=== PATIENT | male | born 1995 | race Hispanic/Latino ===

== ENCOUNTER 2025-01-12 11:35 | Emergency (ER) | payer SELFPAY ==
[2025-01-12 13:33] LABS: Absolute Lymphocytes (CBC) 1.4 K/uL (0.7-4.9); Hematocrit 47.5 % (39.6-49.0); Hemoglobin 16.4 g/dL (13.6-17.9); MCH 30.8 pg (27.0-35.0); MCHC 34.6 g/dL (32.0-36.0); MCV 89.2 fL (80-100); MPV 10.1 fL (7.6-11.3); Nucleated RBC Absolute Count 0.0 (0-0); Nucleated Red Blood Cells % 0.2 % (0-0); RBC Red Blood Cell Count 5.33 M/uL (4.33-5.43); White Blood Count 7.90 thou/uL (4.3-10.9)
[2025-01-12] MEDS ORDERED: NA CHLORIDE 0.9% 1,000 ML ONE (13:36)
[2025-01-12] MEDS ORDERED: DIPHENHYDRAMINE 50 MG/ML VIAL ONE (13:36)
[2025-01-12] MEDS ORDERED: KETOROLAC 30 MG/ML INJ ONE (13:36)
[2025-01-12] MEDS ORDERED: METOCLOPRAMIDE 10 MG/2mL INJ ONE (13:36)
[2025-01-12] MEDS ORDERED: NA CHLORIDE 0.9% 50 ML ONE (13:37)
[2025-01-12 13:48] LABS: Anion Gap 5.6 mEq/L (5.0-15.0); BUN Blood Urea Nitrogen 9.0 mg/dL (7-18); Glucose Level 143.0 mg/dL (74-106); Magnesium 2.0 mg/dL (1.6-2.4); Potassium 3.6 mEq/L (3.5-5.1)
--- NOTE | 2025-01-12 13:49 | RAD REPORT ---
EXAMINATION: Head Brain Wo Cont CLINICAL INDICATION: Male, 29 years old.HEADACHE TECHNIQUE: Axial CT images from the skull base to the vertex without intravenous contrast. Coronal an d sagittal reformatted images were created from the data set. One or more of the following dose reduction techniques were used: Automated exposure control, adjustment of the mA and/or kV according to patient size, and/or iterative reconstruction. Unless otherwise specified, incidental findings do not require dedicated imaging follow-up. [id number]. COMPARISON: No prior exams FINDINGS: INTRACRANIAL: No acute intracranial hemorrhage. No acute large vascular territory infarct. No hydroce phalus. No mass effect or midline shift. No significant white matter disease. VASCULATURE: No visualized abnormalities in the arteries or dural venous sinuses. SCALP/SKULL: No calvarial fracture identified. No acute soft tissue abnormality. SINUSES: The visualized paranasal sinuses are mostly clear. No significant mastoid fluid. IMPRESSION: No acute intracranial abnormality.
--- NOTE | 2025-01-12 14:08 | EDPHYS ---
Physician Documentation [facility] Name: Sahil Jerez Age: 29 yrs Sex: Male : 1995 Arrival Date: 01/12/2025 Time: 11:35 Bed 12 Private MD: ED Physician Yazan Saunders HPI: 01/12 13:45 This 29 yrs old Male presents to ER via Ambulatory with complaints of sb4 Migraine, Body Aches, Eye Pain. 13:45 Patient reports migraine behind his eyes for 3 days now. Does improve with Advil but sb4 just comes back. Denies any history of migraines. Denies any dizziness, nausea, vomiting, noise or light sensitivity. Denies any medical history -does not have high blood pressure or diabetes. Denies any trauma to his head. Historical: - Allergies: 12:02 No Known Allergies; dd2 - PMHx: 12:02 None; dd2 - PSHx: 12:02 None; dd2 - Immunization history:: Adult Immunizations unknown. - Infectious Disease History:: Denies. - Social history:: Smoking status: Patient denies any tobacco usage or history of. ROS: 13:45 Constitutional: Negative for fever, chills, and weight loss, sb4 13:45 Neuro: Positive for headache, 13:45 All other systems are negative, Exam: 13:45 Constitutional: This is a well developed, well nourished patient who is awake, alert, sb4 and in no acute distress. Head/Face: Normocephalic, atraumatic. Eyes: Extra-ocular motions intact. Periorbital areas with no swelling, redness, or edema. ENT: Mucous membranes moist. Cardiovascular: Regular rate and rhythm with a normal S1 and S2. Respiratory: No increased work of breathing, no retractions or nasal flaring. Abdomen/GI: Soft, non-tender, no distension. Skin: Warm, dry with normal turgor. Normal color with no rashes, no lesions, and no evidence of cellulitis. MS/ Extremity: Pulses equal, no cyanosis. Neurovascular intact. Full, normal range of motion. Neuro: Awake and alert, GCS 15, oriented to person, place, time, and situation. Motor strength 5/5 in all extremities. Sensory grossly intact. Vital Signs: 12:00 BP 126 / 79; Pulse 75; Resp 16; Temp 98.3; Pulse Ox 98% on R/A; Weight 97.52 kg; Height dd2 5 ft. 11 in. ; Pain 7/10; 14:39 BP 126 / 68; Pulse 86; Resp 18; Pulse Ox 100% on R/A; ap3 12:00 Body Mass Index 29.99 (97.52 kg, 180.34 cm) dd2 12:00 Pain Scale: Adult dd2 [place] Coma Score: 13:46 Eye Response: spontaneous(4). Motor Response: obeys commands(6). Verbal Response: sb4 oriented(5). Total: 15. MDM: 11:50 Medical Screening Exam initiated sb4 13:46 Differential diagnosis: cluster headache, hypertensive headache, migraine, sinusitis, sb4 tension headache. 14:20 Data reviewed: vital signs, nurses notes, lab test result(s), radiologic studies, and sb4 as a result, I will discharge patient. Counseling: I had a detailed discussion with the patient and/or guardian regarding the historical points, exam findings, and any diagnostic results supporting the discharge/admit diagnosis, lab results, radiology results, the need for outpatient follow up, for definitive care, to return to the emergency department if symptoms worsen or persist or if there are any questions or concerns that arise at home. 15:58 Special discussion: I discussed with the patient/guardian in detail that at this point sb4 there is no indication for admission to the hospital. It is understood, however, that if the symptoms persist or worsen the patient needs to return immediately for re-evaluation. 01/12 13:18 Order name: CBC with Diff; Complete Time: 13:37 sb4 01/12 13:18 Order name: BMP; Complete Time: 13:49 sb4 01/12 13:18 Order name: Magnesium; Complete Time: 13:49 sb4 01/12 13:18 Order name: Head Brain Wo Cont CT; Complete Time: 13:50 sb4 01/12 13:18 Order name: IV Start; Complete Time: 13:33 sb4 01/12 13:18 Order name: Labs collected and sent; Complete Time: 13:33 sb4 Administered Medications: 13:45 Drug: Ketorolac IVP 15 mg IVP once Route: IVP; Site: right antecubital; ap3 14:40 Follow up: Response: No adverse reaction ap3 13:45 Drug: metoCLOPramide IVP 10 mg IVP once; over 1 to 2 minutes Route: IVP; Site: right ap3 antecubital; 14:40 Follow up: Response: No adverse reaction ap3 13:45 Drug: diphenhydrAMINE IVP 25 mg IVP once Route: IVP; Site: right antecubital; ap3 14:40 Follow up: Response: No adverse reaction ap3 13:46 Drug: NS 0.9% IV 1000 ml IV at 1 bolus Per protocol; to be given as a bolus over 60 ap3 minutes Route: IV; Rate: 1 bolus; Site: right antecubital; 14:40 Follow up: IV Status: Completed infusion; IV Intake: 1000ml ap3 Disposition Summary: 01/12/25 14:08 Discharge Ordered Notes: Location: Home sb4 Problem: an ongoing problem sb4 Symptoms: have improved sb4 Condition: Stable sb4 Diagnosis - Headache sb4 Followup: sb4 - With: Emergency Department - When: As needed - Reason: Trouble breathing, Worsening of condition Discharge Instructions: - Discharge Summary Sheet sb4 - Migraine Headache, [id number] sb4 Forms: - Patient Portal Instructions sb4 - Leadership Thank You Letter sb4 Addendum: 01/15/2025 14:38 Co-signature as Attending Physician, Yazan Saunders MD I agree with the assessment and c horn plan of care. Signatures: Dispatcher [employer] Yazan Wilkerson MD MD cha Prokisch, Amanda, RN RN [email or web address] Frida Cordoba PA-C PAArmen best4 BINA STRINGER RN RN dd2
--- NOTE | 2025-01-12 14:08 | ER ---
Nurse's Notes [facility] Name: Sahil Jerez Age: 29 yrs Sex: Male : 1995 Arrival Date: 01/12/2025 Time: 11:35 Bed 12 Private MD: Diagnosis: Headache Presentation: 01/12 12:00 Chief complaint: Patient states: HEADACHE, BODY ACHES AND EYES THROBBING FOR 3 DAYS. PT dd2 REPORTS TAKING MULTIPLE OTC MEDICATIONS WITH NO RELIEF. Coronavirus screen: At this time, the client does not indicate any symptoms associated with coronavirus-19. Ebola Screen: No symptoms or risks identified at this time. Mechanism of Injury: No Mechanism of Injury. The patient denies any loss of vision. Initial Sepsis Screen: Does the patient meet any 2 criteria? No. Patient's initial sepsis screen is negative. Does the patient have a suspected source of infection? No. Patient's initial sepsis screen is negative. Risk Assessment: Do you want to hurt yourself or someone else? Patient reports no desire to harm self or others. Onset of symptoms was January 09, 2025. 12:00 Method Of Arrival: Ambulatory dd2 12:00 Acuity: MARII 3 dd2 Triage Assessment: 12:02 General: Appears in no apparent distress. uncomfortable, Behavior is calm, cooperative, dd2 appropriate for age. Pain: Complains of pain in HEAD, GENERALIZED MUSCLES, RT/LT EYE Pain currently is 7 out of 10 on a pain scale. EENT: Reports pain in right eye and left eye photophobia. Neuro: Reports headache in entire. Historical: - Allergies: 12:02 No Known Allergies; dd2 - PMHx: 12:02 None; dd2 - PSHx: 12:02 None; dd2 - Immunization history:: Adult Immunizations unknown. - Infectious Disease History:: Denies. - Social history:: Smoking status: Patient denies any tobacco usage or history of. Screenin:32 [facility] ED Fall Risk Assessment (Adult) History of falling in the last 3 months, ap3 including since admission No falls in past 3 months (0 pts) Confusion or Disorientation No (0 pts) Intoxicated or Sedated No (0 pts) Impaired Gait No (0 pts) Mobility Assist Device Used No (0 pt) Altered Elimination No (0 pt) Score/Fall Risk Level 0 - 2 = Low Risk Oriented to surroundings, Maintained a safe environment, Educated pt \T\ family on fall prevention, incl call for assistance when getting out of bed, Assessed \T\ reinforced patient's understanding of fall precautions, Hourly rounding (assess needs \T\ fall precautionary measures) done, Used ambulatory aids as needed (educated on \T\ assisted with). Abuse screen: Denies threats or abuse. Nutritional screening: No deficits noted. Tuberculosis screening: No symptoms or risk factors identified. Assessment: 13:02 Reassessment: Patient and/or family updated on plan of care and expected duration. Pain ll1 level reassessed. 13:31 General: Appears in no apparent distress. Behavior is calm, cooperative, appropriate ap3 for age. Pain: Complains of pain in left eye and right eye Pain currently is 7 out of 10 on a pain scale. Neuro: Level of Consciousness is awake, alert, obeys commands, Oriented to person, place, time, situation, Appropriate for age Gait is steady, Speech is normal, Reports headache. Cardiovascular: Patient's skin is warm and dry. Respiratory: Airway is patent Respiratory effort is even, unlabored, Respiratory pattern is regular, symmetrical. EENT: Eyes. Vital Signs: 12:00 BP 126 / 79; Pulse 75; Resp 16; Temp 98.3; Pulse Ox 98% on R/A; Weight 97.52 kg; Height dd2 5 ft. 11 in. ; Pain 7/10; 14:39 BP 126 / 68; Pulse 86; Resp 18; Pulse Ox 100% on R/A; ap3 12:00 Body Mass Index 29.99 (97.52 kg, 180.34 cm) dd2 12:00 Pain Scale: Adult dd2 [place] Coma Score: 13:46 Eye Response: spontaneous(4). Motor Response: obeys commands(6). Verbal Response: sb4 oriented(5). Total: 15. ED Course: 11:37 Patient arrived in ED. cj3 11:46 Frida Cordoba PA-C is PHCP. sb4 11:46 Yazan Saunders MD is Attending Physician. sb4 12:02 Triage completed. dd2 12:02 Arm band placed on right wrist. dd2 13:01 Fanny Marquis, LALO is Primary Nurse. ap3 13:02 Patient placed in an exam room, on a stretcher. ll1 13:31 Initial lab(s) drawn, by me, sent to lab. Inserted saline lock: 22 gauge in right ap3 antecubital area, using aseptic technique. Blood collected. Flushed with 10 mL NS. 13:32 Head Brain Wo Cont CT In Process Unspecified. EDMS 14:40 Patient has correct armband on for positive identification. Provided Education on: ap3 discharge instructions. 14:40 No provider procedures requiring assistance completed. IV discontinued, intact, ap3 bleeding controlled, No redness/swelling at site. Pressure dressing applied. Administered Medications: 13:45 Drug: Ketorolac IVP 15 mg IVP once Route: IVP; Site: right antecubital; ap3 14:40 Follow up: Response: No adverse reaction ap3 13:45 Drug: metoCLOPramide IVP 10 mg IVP once; over 1 to 2 minutes Route: IVP; Site: right ap3 antecubital; 14:40 Follow up: Response: No adverse reaction ap3 13:45 Drug: diphenhydrAMINE IVP 25 mg IVP once Route: IVP; Site: right antecubital; ap3 14:40 Follow up: Response: No adverse reaction ap3 13:46 Drug: NS 0.9% IV 1000 ml IV at 1 bolus Per protocol; to be given as a bolus over 60 ap3 minutes Route: IV; Rate: 1 bolus; Site: right antecubital; 14:40 Follow up: IV Status: Completed infusion; IV Intake: 1000ml ap3 Medication: 13:32 VIS not applicable for this client. ap3 Intake: 14:40 IV: 1000ml; Total: 1000ml. ap3 Outcome: 14:08 Discharge ordered by . sb4 14:40 Discharged to home ambulatory, ap3 14:40 Condition: good 14:40 Discharge instructions given to patient, Instructed on discharge instructions, follow up and referral plans. Demonstrated understanding of instructions, follow-up care, 14:41 Patient left the ED. ap3 Signatures: Dispatcher [employer] EDMS Fanny Marquis RN RN ap3 Asim Curry RN RN ll1 Frida Cordoba, PA-C PA-C sb4 BINA STRINGER RN RN dd2 Margy Alvarenga 3
[2025-01-12 15:18] VITALS: TEMP 98.3
[2025-01-12 15:19] VITALS: BP 126/68; O2SAT 100
== END 2025-01-12 14:41 | disposition home or self-care (01) ==
LOC: ER 11:35
DX: R51.9 Headache, unspecified (principal)
CPT/HCPCS: 36415; 70450; 80048; 83735; 85025; 96361; 96374; 96375; 99284; J1200; J2765; J7030